=== PATIENT | female | born 1990 | race African-American/Black ===

== ENCOUNTER 2017-05-30 17:25 | Emergency (ER) | payer OTHER ==
[~2017-05-30] VITALS: Ht 149.9 cm; Wt 60.8 kg
[~2017-05-30 17:25] MED LIST: AMOXICILLIN500 M1 PO; ASPIRIN EC81 M1; BIRTH CONTROL; IBUPROFEN 200200 M1 PO; IBUPROFEN 600600 M1 PO; LO LOESTRIN FE1 EACH PO; MACROBID 100 M100 M1 PO; MEDROXYPROGESTERONE; NAPROSYN500 MG PO; NEOMYCIN-POLY-7.5 ML OP; NOHOMEMEDICATIONS; PEPCID AC20 M1 PO; PRENATAL PO; PROVENTIL HFA6.7 G1 INH; SRONYX1 EACH PO; ULTRAM 50MG TAB50 MG PO; ZOFRAN ODT4 MG PO; ZPAK PO
[2017-05-30] MEDS ORDERED: IBUPROFEN 600600 M1 PO (17:43)
[2017-05-30] MEDS ORDERED: KEFLEX500 MG PO (17:43)
== END 2017-05-30 18:21 | disposition home or self-care (01) ==
LOC: ER 17:25
DX: K04.7 Periapical abscess without sinus (principal); G43.909 Migraine, unspecified, not intractable, without status migrainosus; Z98.890 Other specified postprocedural states

== ENCOUNTER 2017-12-03 06:41 | Emergency (ER) | payer OTHER ==
[~2017-12-03] VITALS: Ht 149.9 cm; Wt 60.8 kg
[~2017-12-03 06:41] MED LIST changes: +KEFLEX500 MG PO
[2017-12-03 07:26] LABS: URINE BILIRUBIN NEGATIVE (Negative); URINE BLOOD NEGATIVE (Negative); URINE CLARITY CLEAR; URINE COLOR YELLOW; URINE GLUCOSE-RANDOM* NEGATIVE (Negative); URINE KETONES NEGATIVE (Negative); URINE LEUKOCYTES-REFLEX NEGATIVE (Negative); URINE NITRITE-REFLEX NEGATIVE (Negative); URINE PROTEIN (DIPSTICK) NEGATIVE (Negative); URINE SPECIFIC GRAVITY 1.025 (1.005-1.035); URINE UROBILINOGEN 0.2 E.U./dl (0.2-1.0)
[2017-12-03 07:49] LABS: ABSOLUTE NEUTROPHILS 3.5 thou/uL (1.4-8.2); BASOPHILS 0.8 % (0.0-2.0); EOSINOPHILS 4.3 % (0.0-3.0); LYMPHOCYTES 30.5 % (24.0-44.0); MCH 28.4 pg (26.0-34.0); MCHC 33.3 g/dL (28.0-37.0); MCV 85.2 fL (80.0-100.0); PLATELET COUNT 231 thou/uL (150-400); POLYS 56.4 % (36.0-66.0); RBC 4.23 mil/uL (4.20-5.00); RDW 13.2 % (10.5-14.5); WBC 6.2 thou/uL (4.0-11.0)
[2017-12-03 07:58] LABS: CALCIUM 9.1 mg/dL (8.5-10.1); CREATININE 0.7 mg/dL (0.6-1.0); POTASSIUM 3.8 mmol/L (3.5-5.1)
[2017-12-03 08:04] LABS: ALBUMIN 3.9 g/dL (3.4-5.0); DIRECT BILIRUBIN 0.1 mg/dL (<0.1-0.3); TOTAL BILIRUBIN 0.5 mg/dL (<0.1-1.0); TOTAL PROTEIN 7.2 g/dL (6.4-8.2)
[2017-12-03] MEDS ORDERED: NAPROSYN500 MG PO (08:34)
[2017-12-03 08:45] VITALS: BP 119/79
== END 2017-12-03 08:46 | disposition home or self-care (01) ==
LOC: ER 06:41
PROVIDERS: Emergency Medicine
DX: R10.32 Left lower quadrant pain (principal); R11.0 Nausea; G43.909 Migraine, unspecified, not intractable, without status migrainosus

== ENCOUNTER 2017-12-06 21:04 | Emergency (ER) | payer OTHER ==
[~2017-12-06] VITALS: Ht 149.9 cm; Wt 61.7 kg
[2017-12-06] MEDS ORDERED: FLEXERIL PO (22:57)
[2017-12-06] MEDS ORDERED: MOBIC15 MG PO (22:57)
[2017-12-06 23:29] VITALS: BP 106/44
== END 2017-12-06 23:31 | disposition home or self-care (01) ==
LOC: ER 21:04
DX: S29.012A Strain of muscle and tendon of back wall of thorax, initial encounter (principal); G43.909 Migraine, unspecified, not intractable, without status migrainosus; V43.52XA Car driver injured in collision with other type car in traffic accident, initial encounter; Y93.I9 Activity, other involving external motion; Y92.488 Other paved roadways as the place of occurrence of the external cause; Y99.8 Other external cause status

== ENCOUNTER 2019-02-08 11:01 | Emergency (ER) | payer OTHER ==
[~2019-02-08] VITALS: Ht 149.9 cm; Wt 64.4 kg
[~2019-02-08 11:01] MED LIST changes: +FLEXERIL PO; +MOBIC15 MG PO
[2019-02-08] MEDS ORDERED: AZELASTINE137 MCG/0. (11:33)
[2019-02-08] MEDS ORDERED: FLONASE 0.05%50 MCG NASAL (11:33)
[2019-02-08 11:36] LABS: URINE BILIRUBIN NEGATIVE (Negative); URINE BLOOD NEGATIVE (Negative); URINE COLOR YELLOW; URINE GLUCOSE-RANDOM* NEGATIVE (Negative); URINE KETONES NEGATIVE (Negative); URINE LEUKOCYTES-REFLEX NEGATIVE (Negative); URINE NITRITE-REFLEX NEGATIVE (Negative); URINE PROTEIN (DIPSTICK) NEGATIVE (Negative); URINE SPECIFIC GRAVITY 1.015 (1.005-1.035)
[2019-02-08 11:37] LABS: URINE CLARITY SL HAZY
[2019-02-08 12:16] LABS: HEMATOCRIT 34.9 % (37.0-47.0); HEMOGLOBIN 11.8 gm/dL (12.0-15.0); MCH 28.6 pg (26.0-34.0); MCHC 33.7 g/dL (28.0-37.0); MCV 84.9 fL (80.0-100.0); RBC 4.11 mil/uL (4.20-5.00); RDW 13.3 % (10.5-14.5); WBC 9.9 thou/uL (4.0-11.0)
[2019-02-08 12:26] LABS: CALCIUM 9.3 mg/dL (8.5-10.1); CREATININE 0.6 mg/dL (0.6-1.0); POTASSIUM 3.8 mmol/L (3.5-5.1)
[2019-02-08 12:32] LABS: ALBUMIN 3.6 g/dL (3.4-5.0); TOTAL BILIRUBIN 0.3 mg/dL (<0.1-1.0); TOTAL PROTEIN 7.1 g/dL (6.4-8.2)
[2019-02-08 15:40] VITALS: BP 106/46
[2019-02-08] MEDS ORDERED: PHENERGAN 25 MG25 M1 PO (15:43)
[2019-02-08] MEDS ORDERED: VITAFOL-OB+DHA1 EACH PO (15:43)
== END 2019-02-08 15:40 | disposition home or self-care (01) ==
LOC: ER 11:01
PROVIDERS: Physician Assistant
DX: O26.891 Other specified pregnancy related conditions, first trimester (principal); R10.2 Pelvic and perineal pain; R11.0 Nausea; N89.8 Other specified noninflammatory disorders of vagina; R10.30 Lower abdominal pain, unspecified; G43.909 Migraine, unspecified, not intractable, without status migrainosus; Z98.890 Other specified postprocedural states; Z3A.01 Less than 8 weeks gestation of pregnancy

== ENCOUNTER 2019-02-22 20:41 | Emergency (ER) | payer OTHER ==
[~2019-02-22] VITALS: Ht 152.4 cm; Wt 64.4 kg
[~2019-02-22 20:41] MED LIST changes: +AZELASTINE137 MCG/0.; +FLONASE 0.05%50 MCG NASAL; +PHENERGAN 25 MG25 M1 PO; +VITAFOL-OB+DHA1 EACH PO
[2019-02-22 23:15] VITALS: BP 122/69
== END 2019-02-22 23:16 | disposition home or self-care (01) ==
LOC: ER 20:41
DX: O20.0 Threatened abortion (principal); O99.351 Diseases of the nervous system complicating pregnancy, first trimester; G43.909 Migraine, unspecified, not intractable, without status migrainosus; Z3A.01 Less than 8 weeks gestation of pregnancy

== ENCOUNTER 2020-05-19 21:28 | Emergency (ER) | payer OTHER ==
[~2020-05-19] VITALS: Ht 152.4 cm; Wt 63.5 kg
[2020-05-19] MEDS ORDERED: PREDNISONE 20 M20 MG PO (23:18)
[2020-05-19] MEDS ORDERED: HYDROXYZINE HCL25 M2 PO (23:18)
[2020-05-20 00:11] VITALS: BP 129/54
== END 2020-05-20 00:13 | disposition home or self-care (01) ==
LOC: ER 21:28
DX: R06.02 Shortness of breath (principal); J45.909 Unspecified asthma, uncomplicated; G43.909 Migraine, unspecified, not intractable, without status migrainosus; Z79.899 Other long term (current) drug therapy; Z88.8 Allergy status to other drugs, medicaments and biological substances